=== PATIENT | female | born 1965 | race American Indian/Alaskan Native ===

== ENCOUNTER 2018-09-16 22:52 | Emergency (ER) | payer BC ==
--- OUTSIDE RECORDS SUMMARY | 2018-09-16 22:54 | XMS REPORT ---
:1965 Author Organization [employer] Care Team Providers Name Role Phone Irineo Franco Provider Role Unavailable Allergies, Adverse Reactions, Alerts Substance Reaction Event Type N.K.D.A. Info Not Available Non Drug Allergy Problems Problem Type Condition Code Onset Dates Condition Status Assessment Alcohol use Z78.9 Active Assessment Dysmenorrhea N94.6 Active Assessment Primary insomnia F51.01 Active Problem Primary insomnia F51.01 Active Problem History of uterine fibroid Z86.018 Active Problem Dysmenorrhea N94.6 Active Assessment Language barrier Z78.9 Active Assessment History of uterine fibroid Z86.018 Active Problem Language barrier Z78.9 Active Medications No Known Medications Results No Known Results Summary Purpose eClinicalWorks Submission
--- OUTSIDE RECORDS SUMMARY | 2018-09-16 22:54 | XMS REPORT ---
:1965 [facility] Address [address] [address] [place] [address] Care Team Providers Name Role Phone Unavailable Unavailable Unavailable Problems This patient has no known problems. Allergies, Adverse Reactions, Alerts This patient has no known allergies or adverse reactions. Medications This patient has no known medications.
[2018-09-17] MEDS ORDERED: DIAZEPAM 10 MG/2 ML INJ SYRINGE ONE (00:13)
[2018-09-17 00:42] LABS: Absolute Monocytes 0.7 K/uL (0.1-1.3); Absolute Neutrophil 4.9 K/uL (1.8-8.0); Basophils % 0.6 % (0-1.3); Eosinophils % 0.3 % (0-4.4); Hematocrit 33.5 % (36.0-45.0); Lymphocytes % 15.2 % (15.3-44.8); MPV 7.9 fL (7.6-11.3); Monocytes % 10.8 % (3.3-12.3); RBC Red Blood Cell Count 4.78 M/uL (3.86-4.86)
[2018-09-17 00:50] LABS: ALT/SGPT 16 U/L (12-78); AST/SGOT 23 U/L (15-37); Alkaline Phosphatase 67 U/L (45-117); BUN Blood Urea Nitrogen 16 mg/dL (7-18); Bicarbonate 25 mmol/L (21-32); Bilirubin Direct < 0.1 mg/dL (0-0.2); Bilirubin Total 0.2 mg/dL (0.2-1.0); Glucose Level 103 mg/dL (74-106); Lipase 233 U/L (73-393); Magnesium 2.1 mg/dL (1.8-2.4); Potassium 3.8 mmol/L (3.5-5.1); Sodium Level 142 mmol/L (136-145)
[2018-09-17 01:09] LABS: Urine Bacteria <20 /HPF (<20); Urine Culture Reflex Order NOT NEEDED; Urine RBC >50 /HPF (NONE SEEN)
[2018-09-17 01:10] LABS: Urine Blood 3+ (NEG); Urine Glucose NEGATIVE (NEG); Urine Protein TRACE (NEG); Urine pH 6.5 (5.0-7.0)
--- NOTE | 2018-09-17 01:24 | EDPHYS ---
Physician Documentation [facility] Name: Marquita Nunes Age: 53 yrs Sex: Female : 1965 Arrival Date: 09/16/2018 Time: 22:53 Bed 15 Private MD: ED Physician Taurus Hong HPI: 09/16 23:18 This 53 yrs old Other Female presents to ER via Ambulatory with complaints of Vaginal snw Bleeding, Headache. 23:18 The patient presents with vaginal bleeding that is moderate, heavy. Onset: The snw symptoms/episode began/occurred 3 month(s) ago, and became worse today. Modifying factors: The symptoms are alleviated by nothing. Associated signs and symptoms: Pertinent negatives: vaginal bleeding, rectal bleeding. The patient has experienced similar episodes in the past. The patient has been recently seen by a physician:. Had MRI of abd/pelvis today at [facility], no results yet. Historical: - Allergies: 22:58 No Known Allergies; aa1 - Home Meds: 22:58 None [Active]; aa1 - PMHx: 22:58 CERVICAL POLYP; OVARIAN TUMOR; uterine cancer; aa1 - PSHx: 22:58 None; aa1 - Immunization history:: Last tetanus immunization: unknown. - Social history:: Smoking status: Patient/guardian denies using tobacco. - Ebola Screening: : No symptoms or risks identified at this time. ROS: 23:17 Constitutional: Negative for fever, chills, and weight loss, Eyes: Negative for injury, snw pain, redness, and discharge, ENT: Negative for injury, pain, and discharge, Neck: Negative for injury, pain, and swelling, Cardiovascular: Negative for chest pain, palpitations, and edema, Respiratory: Negative for shortness of breath, cough, wheezing, and pleuritic chest pain. 23:17 Back: Negative for injury and pain. 23:17 MS/Extremity: Negative for injury and deformity, Skin: Negative for injury, rash, and discoloration, Neuro: Negative for headache, weakness, numbness, tingling, and seizure. 23:17 Abdomen/GI: Positive for abdominal cramps, rectal bleeding. 23:17 : Positive for vaginal bleeding. 23:17 Psych: Positive for I can't control myself. Exam: 23:16 Head/Face: Normocephalic, atraumatic. Eyes: Pupils equal round and reactive to light, snw extra-ocular motions intact. Lids and lashes normal. Conjunctiva and sclera are non-icteric and not injected. Cornea within normal limits. Periorbital areas with no swelling, redness, or edema. ENT: Nares patent. No nasal discharge, no septal abnormalities noted. Tympanic membranes are normal and external auditory canals are clear. Oropharynx with no redness, swelling, or masses, exudates, or evidence of obstruction, uvula midline. Mucous membranes moist. Neck: Trachea midline, no thyromegaly or masses palpated, and no cervical lymphadenopathy. Supple, full range of motion without nuchal rigidity, or vertebral point tenderness. No Meningismus. Chest/axilla: Normal chest wall appearance and motion. Nontender with no deformity. No lesions are appreciated. Cardiovascular: Regular rate and rhythm with a normal S1 and S2. No gallops, murmurs, or rubs. Normal PMI, no JVD. No pulse deficits. Respiratory: Lungs have equal breath sounds bilaterally, clear to auscultation and percussion. No rales, rhonchi or wheezes noted. No increased work of breathing, no retractions or nasal flaring. 23:16 Back: No spinal tenderness. No costovertebral tenderness. Full range of motion. MS/ Extremity: Pulses equal, no cyanosis. Neurovascular intact. Full, normal range of motion. Neuro: Awake and alert, GCS 15, oriented to person, place, time, and situation. Cranial nerves II-XII grossly intact. Motor strength 5/5 in all extremities. Sensory grossly intact. Cerebellar exam normal. Normal gait. 23:16 Constitutional: The patient appears alert, restless, uncomfortable. 23:16 Abdomen/GI: Inspection: abdomen appears normal, Bowel sounds: normal, in all quadrants, Palpation: mild abdominal tenderness, in all quadrants, Rectal exam: rectal tone normal, Stool: guaiac positive, the exam is chaperoned by the nurse. 23:16 Skin: Appearance: Color: flushed. 23:16 Psych: Behavior/mood is anxious, jumpy. Affect is animated, Oriented to person, place, time. 23:21 Pelvic Exam: Normal external genitalia. Small amount of vaginal bleeding, bright red. snw Vital Signs: 22:58 BP 142 / 77; Pulse 78; Resp 16; Temp 99.1(O); Pulse Ox 96% on R/A; Weight 44.45 kg; aa1 Height 5 ft. 2 in. (157.48 cm); Pain 10; 09/17 00:30 BP 119 / 70; Pulse 59; Resp 16; Pulse Ox 97% on R/A; jb4 01:30 BP 131 / 72; Pulse 63; Resp 16; Pulse Ox 100% on R/A; jb4 09/16 22:58 Body Mass Index 17.92 (44.45 kg, 157.48 cm) aa1 MDM: 09/16 23:22 Patient medically screened. snw 09/17 01:26 Data reviewed: vital signs, nurses notes. Data interpreted: Pulse oximetry: on room air snw is 96 %. Interpretation: acceptable. Counseling: I had a detailed discussion with the patient and/or guardian regarding: the historical points, exam findings, and any diagnostic results supporting the discharge/admit diagnosis, the presence of at least one elevated blood pressure reading (>120/80) during this emergency department visit, lab results, the need for outpatient follow up, to return to the emergency department if symptoms worsen or persist or if there are any questions or concerns that arise at home. Special discussion: Based on the history and exam findings, there is no indication for further emergent testing or inpatient evaluation. I discussed with the patient/guardian the need to see the welding robot operator/oncologist for further evaluation of the symptoms. I discussed with the patient/guardian the need to see the OB Gyne specialist for further evaluation of the symptoms. I discussed with the patient/guardian the need to see the primary care provider for further evaluation of the symptoms. 02:00 Response to treatment: the patient's symptoms have markedly improved after treatment, snw and as a result, I will discharge patient, needs follow up with PCP who has begun workup for her current problem, MRI done, awaiting results. 09/16 23:12 Order name: Urine Dipstick--Ancillary (enter results); Complete Time: 01:17 mt 09/16 23:16 Order name: Urine Microscopic Only; Complete Time: 01:17 mt 09/16 23:21 Order name: Basic Metabolic Panel; Complete Time: 01:04 snw 09/16 23:21 Order name: CBC with Diff; Complete Time: 01:04 snw 09/16 23:21 Order name: Creatinine for Radiology; Complete Time: : snw 09/16 23:21 Order name: Hepatic Function; Complete Time: : snw 09/16 23:21 Order name: Lipase; Complete Time: : snw 09/16 23:21 Order name: IV Saline Lock; Complete Time: 00:22 snw 09/16 23:21 Order name: Labs collected and sent; Complete Time: 00: snw 09/16 23:21 Order name: ETOH Level; Complete Time: 01: snw 09/16 23:21 Order name: Magnesium; Complete Time: : snw 09/16 23:21 Order name: CT Head Brain wo Cont snw Administered Medications: 00:10 Drug: Valium 5 mg Route: IM; Site: left deltoid; jb4 00:50 Follow up: Response: No adverse reaction; Temperature is increased jb4 01:28 Drug: morphine 2 mg Route: IVP; Site: right antecubital; jb4 01:44 Follow up: Response: No adverse reaction; Pain is decreased jb4 Disposition: 03:00 Co-signature as Attending Physician, Taurus Hong MD. rn Disposition: 09/17/18 01:23 Discharged to Home. Impression: Generalized abdominal pain, Hematuria, Gastrointestinal hemorrhage, unspecified - occult. - Condition is Stable. - Discharge Instructions: Abdominal Pain, Adult, Hematuria, Adult, Rectal Bleeding, Rehydration, Adult. - Medication Reconciliation Form, Thank You Letter, Antibiotic Education, Prescription Opioid Use form. - Follow up: Private Physician; When: Tomorrow; Reason: Recheck today's complaints, Continuance of care, Re-evaluation by your physician. Follow up: Emergency Department; When: As needed; Reason: Worsening of condition. - Notes: Continue current medications. Follow up with PCP tomorrow. MRI results as soon as possible Signatures: Dispatcher [employer] EDAyesha Clarke RN RN aa1 Edie Marshall, CRYPTOGRAPHER-C CRYPTOGRAPHER-Csnw Taurus Hong MD MD rn Bryson, James, RN RN jb4 Corrections: (The following items were deleted from the chart) 09/16 23:22 23:16 Abdomen/GI: Inspection: abdomen appears normal, Bowel sounds: normal, in all snw quadrants, Palpation: mild abdominal tenderness, in all quadrants, snw 09/17 02:12 01:23 09/17/2018 01:23 Discharged to Home. Impression: Generalized abdominal pain; jb4 Hematuria; Gastrointestinal hemorrhage, unspecified - occult. Condition is Stable. Forms are Medication Reconciliation Form, Thank You Letter, Antibiotic Education, Prescription Opioid Use. Follow up: Private Physician; When: Tomorrow; Reason: Recheck today's complaints, Continuance of care, Re-evaluation by your physician. Follow up: Emergency Department; When: As needed; Reason: Worsening of condition. snw
--- NOTE | 2018-09-17 01:24 | ER ---
Nurse's Notes [facility] Name: Marquita Nunes Age: 53 yrs Sex: Female : 1965 Arrival Date: 09/16/2018 Time: 22:53 Bed 15 Private MD: Diagnosis: Generalized abdominal pain;Hematuria;Gastrointestinal hemorrhage, unspecified-occult Presentation: 09/16 22:56 Presenting complaint: Patient states: she has uterine cancer and has been having aa1 vaginal bleeding daily x 3 months but it became much heavier today. Reports MRI today at [facility] in [place] but does not have the results yet. Transition of care: patient was not received from another setting of care. Onset of symptoms was May 2018. Risk Assessment: Do you want to hurt yourself or someone else? Patient reports no desire to harm self or others. Initial Sepsis Screen: Does the patient meet any 2 criteria? No. Patient's initial sepsis screen is negative. Does the patient have a suspected source of infection? No. Patient's initial sepsis screen is negative. Care prior to arrival: None. 22:56 Method Of Arrival: Ambulatory aa1 22:56 Acuity: MODESTA 2 aa1 Triage Assessment: 22:58 General: Appears in no apparent distress. comfortable, Behavior is cooperative, aa1 appropriate for age, anxious. Historical: - Allergies: 22:58 No Known Allergies; aa1 - Home Meds: 22:58 None [Active]; aa1 - PMHx: 22:58 CERVICAL POLYP; OVARIAN TUMOR; uterine cancer; aa1 - PSHx: 22:58 None; aa1 - Immunization history:: Last tetanus immunization: unknown. - Social history:: Smoking status: Patient/guardian denies using tobacco. - Ebola Screening: : No symptoms or risks identified at this time. Screenin/19 00:23 Abuse screen: Denies threats or abuse. Denies injuries from another. Nutritional mg2 screening: No deficits noted. Tuberculosis screening: No symptoms or risk factors identified. Fall Risk IV access (20 points). Assessment: 09/16 23:30 General: Appears in no apparent distress. comfortable, Behavior is calm, cooperative, jb4 appropriate for age. Pain: Complains of pain in groin Pain does not radiate. Pain currently is 4 out of 10 on a pain scale. at worst was 8 out of 10 on a pain scale. Neuro: Level of Consciousness is awake, alert, obeys commands, Oriented to person, place, time, situation. Cardiovascular: Patient's skin is warm and dry. Respiratory: Airway is patent Respiratory effort is even, unlabored, Respiratory pattern is regular, symmetrical. GI: Reports bloody stool. : Urine is blood tinged, Reports vaginal bleeding that is heavy flow. EENT: No signs and/or symptoms were reported regarding the EENT system. Derm: Skin is intact, Skin is pink, warm \T\ dry. Musculoskeletal: Circulation, motion, and sensation intact. 09/17 00:30 Reassessment: Patient appears in no apparent distress at this time. Patient and/or jb4 family updated on plan of care and expected duration. Pain level reassessed. Patient is alert, oriented x 3, equal unlabored respirations, skin warm/dry/pink. 01:20 Reassessment: Patient appears in no apparent distress at this time. Patient and/or jb4 family updated on plan of care and expected duration. Pain level reassessed. Patient is alert, oriented x 3, equal unlabored respirations, skin warm/dry/pink. Pt reports cramping, provider notified see [facility] for orders. 02:09 Reassessment: Patient appears in no apparent distress at this time. Patient and/or jb4 family updated on plan of care and expected duration. Pain level reassessed. Patient is alert, oriented x 3, equal unlabored respirations, skin warm/dry/pink. Discussed D/c, F/u with pt and pt's daughter. Questions and concerns addressed. Denies further questions or concerns. Vital Signs: 09/16 22:58 BP 142 / 77; Pulse 78; Resp 16; Temp 99.1(O); Pulse Ox 96% on R/A; Weight 44.45 kg; aa1 Height 5 ft. 2 in. (157.48 cm); Pain 6/10; 09/17 00:30 BP 119 / 70; Pulse 59; Resp 16; Pulse Ox 97% on R/A; jb4 01:30 BP 131 / 72; Pulse 63; Resp 16; Pulse Ox 100% on R/A; jb4 09/16 22:58 Body Mass Index 17.92 (44.45 kg, 157.48 cm) aa1 ED Course: 09/16 22:53 Patient arrived in ED. ds1 22:58 Triage completed. aa1 22:58 Arm band placed on right wrist. Patient placed in an exam room, on a stretcher. aa1 23:07 Edie Marshall FNP-C [facility] snw 23:07 Taurus Hong MD is Attending Physician. snw 23:27 Polo Hawk, RN is Primary Nurse. jb4 09/17 00:00 Patient has correct armband on for positive identification. Placed in gown. Bed in low jb4 position. Call light in reach. Side rails up X 1. Pulse ox on. NIBP on. 00:23 No provider procedures requiring assistance completed. Inserted saline lock: 20 gauge mg2 in right antecubital area, using aseptic technique. Blood collected. 00:28 CT Head Brain wo Cont In Process Unspecified. EDMS 02:11 IV discontinued, intact, bleeding controlled, No redness/swelling at site. jb4 Administered Medications: 00:10 Drug: Valium 5 mg Route: IM; Site: left deltoid; jb4 00:50 Follow up: Response: No adverse reaction; Temperature is increased jb4 01:28 Drug: morphine 2 mg Route: IVP; Site: right antecubital; jb4 01:44 Follow up: Response: No adverse reaction; Pain is decreased jb4 Outcome: 01:23 Discharge ordered by . snw 02:11 Discharged to home ambulatory, with family. jb4 02:11 Condition: stable 02:11 Discharge instructions given to patient, family, Instructed on discharge instructions, follow up and referral plans. Demonstrated understanding of instructions, follow-up care. 02:12 Patient left the ED. jb4 Signatures: Dispatcher [employer] EDMS Ayesha Garcia, RN RN aa1 Edie Marshall FNP-C RESEARCH LABORATORY SPECIALIST-[place] Mounika Gong ds1 Polo Hawk, RN RN jb4 Cali Hartman RN RN mg2
[2018-09-17] MEDS ORDERED: MORPHINE 2 MG/ML SYR ONE (01:32)
--- NOTE | 2018-09-17 07:06 | RAD REPORT ---
EXAM DESCRIPTION: CT - Head Brain Wo Cont - 09/17/2018 4:00 am CLINICAL HISTORY: Transient alteration of awareness, history of uterine carcinoma A preliminary report was provided at the time of the study and reviewed prior to final report. COMPARISON: None. TECHNIQUE: Axial 5 mm thick images of the head were obtained without IV contrast. All CT scans are performed using dose optimization technique as appropriate and may include automated exposure control or mA/KV adjustment according to patient size. FINDINGS: No intracranial hemorrhage, mass, edema or shift of mid-line structures. No acute infarcti on changes seen. No significant atrophy or chronic ischemic change. Ventricles are normal. Mastoid air cells and visualized portions of the paranasal sinuses are clear. No acute bony findings. IMPRESSION: Negative non-contrast CT head examination for acute or significant finding.
== END 2018-09-17 02:12 | disposition home or self-care (01) ==
LOC: ER 22:52
DX: R31.9 Hematuria, unspecified (principal); K92.2 Gastrointestinal hemorrhage, unspecified; Z85.42 Personal history of malignant neoplasm of other parts of uterus
CPT/HCPCS: 36415; 70450; 80048; 80076; 80320; 81003; 81015; 83690; 83735; 85025; 96372; 96374; 99284; J2270; J3360